=== PATIENT | male | born 1950 | race Caucasian/White ===

== ENCOUNTER 2016-09-05 08:19 | Emergency (ER) | payer MEDICARE, BC ==
[2016-09-05 09:09] LABS: BASOPHILS 0.3 % (0.0-2.0); EOSINOPHILS 2.9 % (0-7); HEMATOCRIT 44.6 % (42.0-54.0); HEMOGLOBIN 15.1 g/dL (13.5-17.5); IMMATURE GRANULOCYTES 0.2 % (0-5); LYMPHOCYTES 26.5 % (15-50); MCHC 33.9 g/dL (31.0-37.0); MCV 97.4 fL (80.0-100.0); MEAN PLATELET VOLUME 9.8 fL (7.4-10.4); NEUTROPHILS 62.1 % (40-80); PLATELET COUNT 183 10x3/uL (130-400); RBC 4.58 10x6/uL (4.20-6.10); RDW 12.3 % (11.5-14.5); WBC 6.5 10x3/uL (4.8-10.8)
[2016-09-05 09:25] LABS: APTT 48.5 SECONDS (22.8-39.4); INR 2.37 (0.85-1.17)
== END 2016-09-05 10:30 | disposition home or self-care (01) ==
LOC: D.ER 08:19
PROVIDERS: Emergency Medicine
DX: Z79.01 Long term (current) use of anticoagulants (principal); R04.0 Epistaxis